=== PATIENT | female | born 1950 | race Caucasian/White ===

== ENCOUNTER → 2023-05-23 13:15 | Outpatient (REF) | payer MEDICARE, OTHER, SELFPAY | LOC: HWRAD 13:15 | PROVIDERS: ATTENDING PHYSICIAN Internal Medicine Critical Care Medicine | DX: R91.8 Other nonspecific abnormal finding of lung field (principal) | CPT/HCPCS: 71250 ==

== ENCOUNTER → 2023-07-11 10:10 | Outpatient (REF) | payer MEDICARE, OTHER, SELFPAY | LOC: HWRCS 10:10 | PROVIDERS: ATTENDING PHYSICIAN Internal Medicine Cardiovascular Disease; FAMILY PHYSICIAN Family Medicine | DX: I10 Essential (primary) hypertension (principal); I50.32 Chronic diastolic (congestive) heart failure | CPT/HCPCS: 93306 ==

== ENCOUNTER → 2024-03-19 11:27 | Outpatient (REF) | payer MEDICARE, OTHER, SELFPAY | LOC: HWWDC 11:27 | PROVIDERS: ATTENDING PHYSICIAN Obstetrics & Gynecology Gynecology; FAMILY PHYSICIAN Family Medicine | DX: Z12.31 Encounter for screening mammogram for malignant neoplasm of breast (principal); Z78.0 Asymptomatic menopausal state | CPT/HCPCS: 77063; 77067; 77080 ==

== ENCOUNTER → 2024-03-26 08:53 | Outpatient (REF) | payer MEDICARE, OTHER, SELFPAY | LOC: WDC 08:53 | PROVIDERS: ATTENDING PHYSICIAN Obstetrics & Gynecology Gynecology; FAMILY PHYSICIAN Family Medicine | DX: R92.8 Other abnormal and inconclusive findings on diagnostic imaging of breast (principal) | CPT/HCPCS: 76642 ==

== ENCOUNTER → 2024-04-02 13:11 | Outpatient (REF) | payer MEDICARE, OTHER, SELFPAY ==
[2024-04-02 14:33] LABS: Blood Urea Nitrogen 18 mg/dl (7-17)
== END ==
LOC: REG 13:11
PROVIDERS: ATTENDING PHYSICIAN Family Medicine
DX: I50.32 Chronic diastolic (congestive) heart failure (principal)
CPT/HCPCS: 36415; 82565; 84520

== ENCOUNTER → 2024-04-08 16:37 | Outpatient (REF) | payer MEDICARE, OTHER, SELFPAY | LOC: RAD 16:37 | PROVIDERS: ATTENDING PHYSICIAN Obstetrics & Gynecology Gynecology; FAMILY PHYSICIAN Family Medicine; REFERRING PHYSICIAN Surgery Vascular Surgery | DX: R92.8 Other abnormal and inconclusive findings on diagnostic imaging of breast (principal) | CPT/HCPCS: 71275; Q9967 ==

== ENCOUNTER 2024-09-13 04:15 | Day surgery (SDC) | payer MEDICARE, OTHER, SELFPAY ==
[2024-09-12 19:08] VITALS: BP 141/84
[2024-09-12 19:40] LABS: Hematocrit 40.4 % (37.0-47.0); Hemoglobin 13.6 g/dL (12.0-16.0); Mean Corp Hgb Conc. 33.7 g/dL (33.0-37.0); Mean Corpuscular Volume 91.2 fL (81.0-99.0); Nucleated Red Blood Cells % 0 %; Platelet Count 245 10^3/uL (130-400); Red Cell Dist. Width 13.6 % (11.5-14.5)
[2024-09-12 19:44] LABS: ALT (SGPT) 42 U/L (0-35); AST (SGOT) 25 U/L (14-36); Albumin 4.5 g/dl (3.5-5.0); Alkaline Phosphatase 91 U/L (38-126); Blood Urea Nitrogen 15 mg/dl (7-17); Calcium 10.5 mg/dl (8.4-10.2); Carbon Dioxide 27 mmol/L (22-30); Chloride 103 mmol/L (98-107); Glucose 114 mg/dl (70-99); Lipase 88 U/L (23-300); Potassium 3.9 mmol/L (3.5-5.1); Sodium 137 mmol/L (135-145); Total Protein 7.6 g/dl (6.3-8.2); eGFR > 60.00
[2024-09-12 19:55] LABS: Troponin I < 0.012 ng/ml
--- NOTE | 2024-09-12 23:03 | ED.GENMED ---
History of Present Illness
General
Chief Complaint: Abdominal Pain
Source: patient
Exam Limitations: none
Time Seen by Provider: 09/12/24 21:11
Nursing documentation reviewed up to this point in time: agreed with
History of Present Illness
History of Present Illness:
The patient is a 74-year-old female with history hypertension, hypothyroid, diabetes who presents to the emergency department for evaluation of abdominal pain. Patient states that symptoms started somewhat acutely this afternoon around 2 PM after
eating a slice of pizza. She describes a sharp, stabbing pain across her mid abdomen, more so on the right side. She now feels like the pain is localized to the right mid/right upper abdomen although occasionally shoots over to the left side.
She has felt extremely nauseous although has had no episodes of vomiting. She denies any known fever. No radiation of pain into her back. No dysuria or hematuria. No diarrhea or constipation.
Patient was seen by her primary care provider this afternoon who referred her to the emergency department for further evaluation.
Patient denies any chest pain or shortness of breath.
Past History
Past History
ED Past Medical History: Hypercholesterolemia, NIDDM and Hypothyroidism
Social History
Tobacco: Non-smoker
Personal:
Living: with family
Employment: Employed
Review of Systems
Review of Systems
Allergies reviewed?: Yes
All Other Systems: ROS reviewed and negative except as documented in HPI and ROS
Phy Exam
Physical Exam
Physical Exam:
Vitals: Hypertensive, otherwise vital signs stable.. Afebrile
General: Patient is well appearing, no acute distress. Nontoxic appearing
Skin: Warm and dry, no rashes or lesions
Head: Normocephalic, atraumatic
Eyes: Sclera nonicteric.
Throat: Protecting airway
Neck: Normal ROM, no cervical spine tenderness, no meningismus
Cardiac: Regular rate and rhythm, no murmurs.
Pulm: Normal respiratory effort, no wheezes, rales, rhonchi heard on exam
.
Abdomen: Abdomen soft. Moderate tenderness in right mid/right upper quadrant. No rebound tenderness or guarding. No CVA tenderness.
Extremities: No evidence of cyanosis or edema
Neuro: AAOx3. Grossly intact.
Psychiatric: Normal affect.
Course
Orders/Labs/Results
Orders:
Orders
09/12/24 19:10
EKG [Electrocardiogram (*1)] Urgent
Reason for Study: Abdominal Pain
09/12/24 19:11
EKG- Treatment ONCE
09/12/24 19:20
Complete Blood Count/With Diff Urgent
Comprehensive Metabolic Panel Urgent
Lipase Urgent
Troponin I Urgent
09/12/24 21:36
US Abdomen Complete/Upper Urgent
Comment:
Reason For Exam: Upper abdominal pain
09/12/24 23:30
Ketorolac [Toradol] 15 mg IV NOW STA
09/13/24 00:00
CT Abd/pelvis W Iv Cont Urgent
Reason For Exam: Upper abdominal pain
09/13/24 01:34
0.9% Sodium Chloride 1000 ml [Nss] 1,000 ml IV BOLUS
LevoFLOXacin 750 MG/150 ML [Levaquin] 750 mg in 150 ml IV NOW
MetroNIDAZOLE 500 MG/100 ML [Flagyl 500 mg] 100 ml IV NOW
09/13/24 01:38
0.9% Sodium Chloride 1000 ml [Nss] 1,000 ml IV BOLUS
Abnormal Lab Results
09/12/24
19:20
WBC 15.7 H 10^3/uL
(4.8-10.8)
Abs Immat Gran (auto) 0.1 H 10^3/uL
(0-0.05)
Absolute Neuts (auto) 12.8 H 10^3/uL
(1.4-6.5)
Absolute Monos (auto) 1.1 H 10^3/uL
(0.1-0.6)
Immature Gran % 0.6 H %
(0-0.5)
Neutrophils % 81.6 H %
(42.2-75.2)
Lymphocytes % 10.2 L %
(20.5-51.1)
Glucose 114 H mg/dl
(70-99)
Calcium 10.5 H mg/dl
(8.4-10.2)
ALT 42 H U/L
(0-35)
09/12/24 19:20
09/12/24 19:20
Vital Signs
Initial and Last Documented VS:
Initial Vital Signs
Temp Pulse Resp BP Pulse Ox
98.8 F 98 18 141/84 96
09/12/24 19:08 09/12/24 19:08 09/12/24 19:08 09/12/24 19:08 09/12/24 19:08
Last Documented Vital Signs
Temp Pulse Resp BP Pulse Ox
98.8 F 86 18 127/69 98
09/12/24 19:08 09/13/24 00:34 09/13/24 00:34 09/12/24 23:49 09/13/24 00:32
MDM/Problems Addressed
Differential Diagnosis Includes:
Not limited to: Biliary colic, acute cholecystitis, choledocholithiasis, cholangitis, pancreatitis, appendicitis, diverticulitis, etc.
MDM/Problems Addressed:
74-year-old female presenting with acute onset right-sided abdominal pain after eating a slice of pizza this afternoon. Symptoms associated with nausea although no vomiting. No associated fever, dysuria, diarrhea. Vitals and physical exam as
above. Differential broad�however given postprandial nature�higher suspicion for biliary etiology including biliary colic or acute cholecystitis. Other considerations include diverticulitis, appendicitis, enteritis, etc. ED plan: Labs, treat
pain. Will start with abdominal ultrasound and reassess.
Update: Labs reviewed. CBC significant for leukocytosis of 15.7 with left shift. Chemistry without clinically significant abnormalities. A troponin was sent which is undetectable. Lipase normal. Abdominal ultrasound reveals he distended
gallbladder however no evidence of cholelithiasis or other findings consistent with acute cholecystitis. While patient does report improvement in symptoms following Toradol on reexamination she does still have moderate tenderness in right mid/upper
abdomen. Given persistent tenderness as well as leukocytosis�will proceed with CT scan for further evaluation. Patient remains stable.
Update: CT scan shows findings consistent with possible early acute appendicitis, noting dilation at base of appendix and minimal surrounding fat stranding. No evidence of gallbladder abnormality. At this point�concern for early appendicitis given
leukocytosis and persistent abdominal pain. Levaquin/Flagyl started in emergency department given history of penicillin allergy. Discussed with general surgery, Dr. Stapleton. Patient admitted to general surgery service in stable condition for
continued IV antibiotics and consult in the morning.
Chronic conditions affecting care:
Hypertension
Acute Exacerbation and/or Progression of Chronic Illness:
Acutely hypertensive
*Radiology
Radiology exam reviewed: radiology read reviewed
*Pulse Oximetry
SaO2: 96
Oxygen Mode of Delivery: Room air
Patient hypoxic: no
*EKG
Interpreted by ED Provider?: Yes
EKG Intrepretation Date: 09/12/24
Interpretation: abnormal
Comparison EKG: changes noted
Heart Rate: 95
Rate: normal
Rhythm: sinus and PVC's
[place]: left axis deviation
Interval: normal QT interval and first degree heart block
QRS Pattern: left vent hypertrophy
*Tankage Grinder Interpretation
Rate: Tankage Grinder- N/A
*Critical Care Note
Total Time (30-74mins, 75-104mins- exclusive of procedures): Not Applicable
Patient Management
Discussion with other providers: Chief Deputy Clerk/Bailiff (Case discussed with general surgery)
Escalation/DeEscalation of care consider admission/obs:
Admit for IV antibiotics, general surgery and possible OR
ED Attending Note
-
Portions of this chart may have been created with voice recognition software.� Occasional wrong word or��sound alike� substitutions may have occurred due to the inherent limitations of voice recognition software.
Discharge Plan
Departure
Patient Disposition: Admit
Date of Disposition: 09/13/24
Time of Disposition: 01:34
Admit to doctor: Dr. Stapleton
Presentation/result/management discussed w/ accepting MD/DO: General Surgery
Discharge Problem:
Acute appendicitis
Prescriptions:
No Action
levothyroxine 75 MCG tablet
75 mcg PO DAILY
losartan-hydrochlorothiazide 1 EACH tablet
1 tab PO DAILY
potassium chloride [Klor-Con M20] 20 MEQ tablet,ER particles/crystals
40 meq PO DAILY
furosemide 80 MG tablet
80 mg PO DAILY
diltiazem HCl 120 MG capsule,extended release 24hr
60 mg PO BID
metformin 1,000 MG tablet
1,000 mg PO BID
fluticasone propion-salmeterol [Advair HFA] 1 PUFF HFA aerosol inhaler
2 puff inhalation R BID Qty: 1 0RF
Patient Comments:
Pt took this in 2015
cyanocobalamin (vitamin B-12) [Vitamin B-12] 1,000 mcg Tablet
1,000 mcg PO Q48H
spironolactone 25 mg Tablet
12.5 mg PO QPM
vitamin B complex Tablet
2 tab PO BID
allopurinol 300 mg Tablet
300 mg PO DAILY
albuterol sulfate 90 mcg/actuation Hfa Aerosol Inhaler
2 puff INHALATION QID
fluticasone propionate 110 mcg/actuation Hfa Aerosol Inhaler
2 puff INHALATION BID
Referrals:
Radha Bryan MD [Family Provider, Family Practice]
Interventions
Interventions:
*Risk Screen - Suicide Last Done: 09/12/24 19:08
*General Assessment Last Done: 09/12/24 19:08
*Neglect/Abuse Screening Last Done: 09/12/24 19:08
*ED COVID-19 Vaccine History Last Done: 09/12/24 19:08
KP-Flvzzi-Zopnhnupli Assessment Last Done: 09/12/24 23:41
Discharge Date and Time
Print Language: BULGARIAN
[2024-09-12 23:49] VITALS: BP 127/69
[2024-09-13] VITALS (13 sets, daily range): BP systolic 95–134; BP diastolic 57–84; BMI 58.0; BMI 47.4
[2024-09-13] MEDS: TORADOL 15 MG IV ×3 (00:28→17:49)
[2024-09-13] MEDS: FLAGYL 500 MG 100 IV (01:55)
[2024-09-13] MEDS: LEVAQUIN 150 IV (02:10)
[2024-09-13] MEDS: NSS 1000 IV ×2 (02:12→04:50)
--- NOTE | 2024-09-13 02:58 | HPS.HSE ---
Addendum entered and electronically signed by Henok Stapleton MD 09/13/24 09:22:
Patient seen and examined independently of admitting nurse practitioner. Agree with documented history and physical consistent with my current examination evaluation.
HPI: 74-year-old female was in her usual baseline state of health until yesterday afternoon when she was with her grandchildren and noticed the acute onset of periumbilical/generalized abdominal pain as time progressed the pain appeared to localize
more towards the right lower quadrant although it was still radiating out from them. She has been nauseous but without vomiting. There is anorexia. No recent change in her bowel habits. Her pain persisted this a.m. although it is improving with
administration of analgesics. No similar episodes in the past.
PMH is notable for hypertension, chronic diastolic heart failure, hypothyroidism, type 2 diabetes, restrictive lung disease, gout.
Past abdominal surgical history of having undergone hysterectomy and x 2
AFVSS
NAD AAO x 3
ABD: Soft, obese, protuberant, tenderness to palpation periumbilically but localized in the right lower quadrant with localized voluntary guarding and rebound.
CT imaging personally reviewed Dilated appendix up to 1 cm with surrounding fat stranding. Fluid-filled appendix. No organizing fluid collection. No free fluid. No additional notable acute or chronic CT imaging findings.
Assessment: 74-year-old female with acute appendicitis.
Reviewed with patient history, examination and CT imaging consistent with acute appendicitis. Discussed both operative and nonoperative management options and associated risks/benefits of approaches. Patient is in agreement to proceed with
appendectomy.
Laparoscopic appendectomy reviewed in detail with the patient. Discussed operative technique, alternative management options, benefits and potential risks such as but not limited to bleeding, infectious or wound healing complications, iatrogenic
injury to surrounding viscera and staple line leakage. Discussed the typical postoperative recovery pending operative findings.
Any of the patient's concerns or questions were fully addressed and informed consent was obtained.
Plan: OR for laparoscopic appendectomy.
Empiric antibiotic coverage with Levaquin/Flagyl initiated emergency department.
Nothing by mouth, IV fluid hydration and supportive care awaiting operative room availability.
SCDs for DVT prophylaxis
Original Note:
Family Physician
-
Family Physician: Radha Bryan
Chief Complaint
-
Abdominal pain
History of Present Illness
Patient is a 74-year-old female with a past medical history significant for hypertension, chronic diastolic heart failure, hypothyroidism, non-insulin dependent type 2 diabetes, restrictive lung disease, gout, who presents to the emergency
department for evaluation of abdominal pain. Patient states that symptoms started somewhat acutely this afternoon around 2 PM after eating a slice of pizza at noon. She describes a sharp, stabbing pain across her mid abdomen, more so on the right
side. She now feels like the pain is localized to the right mid/right upper abdomen although occasionally shoots over to the left side. She has felt extremely nauseous although has had no episodes of vomiting. She denies any known fever. No
radiation of pain into her back. No dysuria or hematuria. No diarrhea or constipation. Patient denies any chest pain or shortness of breath. Patient was seen by her primary care provider this afternoon who referred her to the emergency department
for further evaluation.
In the emergency department, labs notable for elevated WBC 15.7 with left shift, otherwise unremarkable.
EKG preliminary read sinus rhythm with 1st degree A-V block with occasional premature ventricular complexes, left axis deviation. Vital signs stable, afebrile, on room air.
Abdominal ultrasound showed distended gallbladder however no evidence of cholelithiasis or other findings consistent with acute cholecystitis.
CT abdomen and pelvis with IV contrast, preliminary read, impression: The base of the appendix is dilated at 1 cm with minimal surrounding fat stranding. This may be incidental or may represent early acute appendicitis. Correlate with clinical
findings. No free air, free fluid, or abscess. Gallbladder and pancreas are unremarkable. Mild hepatic steatosis. No hydronephrosis. Nonobstructing right lower pole renal calculi. No bowel obstruction or focal inflammation. DJD and DDD.
In the emergency department, patient was given Ketorolac 15 mg IV, 1L NSS, Levofloxacin 750 mg IV x 1 dose and Metronidazole 500 mg IV x 1 (antibiotics per penicillin allergy).
Emergency provider discussed case with general surgery, Dr. Stapleton. Patient to be admitted to general surgery service, continue IV antibiotics, antiemetics, and analgesia. Consult in the morning.
Medical History
Past Medical History
Past Medical History: Reports Asthma, CHF, HTN, Hypothyroidism and NIDDM
Past Surgical History: Reports (1984 and 1986), Gynocological (Hysterectomy 2001) and Orthopedic (Left knee surgery 1993, 2009)
Social History
Tobacco: Non-smoker
Drug: None
Personal:
Living: With Family
Employment: Retired
Family History
Family History: Not pertinent
Allergies / Home Medications
Allergies reflects when Allergies were last updated in [employer].
Home Medications with original date entered in [employer]
Allergy/Medication List:
Patient Allergies
Allergy/AdvReac Type Severity Reaction Status Date / Time
latex Allergy Rash Verified 09/12/24 19:10
Penicillins Allergy Rash Verified 09/12/24 19:10
pollen extracts Allergy Itching Verified 09/12/24 19:10
theophylline Allergy DIFFICULTY Verified 09/12/24 19:10
BREATHING
Home Medications
�Medication �Instructions �Recorded
diltiazem HCl 120 mg 60 mg PO BID 05/19/15
capsule,extended release 24 hr
furosemide 80 mg tablet 80 mg PO DAILY 05/19/15
levothyroxine 75 mcg tablet 75 mcg PO DAILY 05/19/15
metformin 1,000 mg tablet 1,000 mg PO BID 05/19/15
potassium chloride 20 mEq 20 meq PO DAILY 05/19/15
tablet,extended
release(part/cryst) (Klor-Con M)
albuterol sulfate 90 mcg/actuation 2 puff inhalation QID 02/03/23
aerosol inhaler
allopurinol 300 mg tablet 300 mg PO DAILY 02/03/23
cyanocobalamin (vitamin B-12) 1,000 mcg PO Q48H 02/03/23
1,000 mcg tablet (Vitamin B-12)
spironolactone 25 mg tablet 12.5 mg PO QPM 02/03/23
vitamin B complex 2 tab PO BID 02/03/23
fluticasone furoate 100 1 inh inhalation DAILY 09/13/24
mcg/actuation blister powder for
inhalation (Arnuity Ellipta)
losartan 100 mg tablet 100 mg PO DAILY 09/13/24
Review of Systems
-
History Source: Patient
Constitutional: Reports No Symptoms
EENT: Reports No Symptoms
Respiratory: Reports No Symptoms
Cardiac: Reports No Symptoms
Abdomen/GI: Reports Abdominal Pain (right side mid and upper abdomen), Nausea and Pain (Severe pain w/acute onset, on evaluation no pain)
: Reports No Symptoms
Musculoskeletal: Reports No Symptoms
Skin: Reports No Symptoms
Neurological: Reports No Symptoms
Endocrine: Reports No Symptoms
Hematologic/Lymphatic: Reports No Symptoms
Psych: Reports Calm
Physical Exam
Vital Signs
Vital Signs
Temp Pulse Resp BP Pulse Ox
98.8 F 86 18 127/69 98
09/12/24 19:08 09/13/24 00:34 09/13/24 00:34 09/12/24 23:49 09/13/24 00:32
Physical Exam
General: No Apparent Distress, Comfortable, Conversant, Poor Appetite and Morbidly Obese; No Pain or Fever
HEENT: NormoCephalic, Moist mucous membranes, Atraumatic and PERRLA; No Oxygen
Respiratory: Clear and Non Labored Respirations; No Wheezes, Rales, Rhonchi or Crackles
Cardiac: S1/S2, Regular Rhythm and Peripheral Edema (+2 pitting b/l lower extremity/pedal edema); No Murmur
GI: Soft and Tender (right side upper/mid abdomen)
Musculoskeletal: Edema, Left Lower Extremity (+2 pitting) and Edema, Right Lower Extremity (+2 pitting )
Skin: Warm, Dry and IV/Catheter Site
Neuro: AO x 3 and Nonfocal/grossly intact
Psych: Calm and Intact Judgment/Insight
Laboratory Results
-
09/12/24 19:20
09/12/24 19:20
Laboratory Results
Total Bilirubin 0.7 mg/dl (0.2-1.3) 09/12/24 19:20
AST 25 U/L (14-36) 09/12/24 19:20
ALT 42 U/L (0-35) H 09/12/24 19:20
Alkaline Phosphatase 91 U/L (38-126) 09/12/24 19:20
Troponin I < 0.012 ng/ml 09/12/24 19:20
Lipase 88 U/L (23-300) 09/12/24 19:20
Data Reviewed
-
CT Scan: Report Reviewed by me
Ultrasound: Report Reviewed by me
Medical Tests (Nuc Med, Echo, EKG etc): Image Personally Visualized and interpreted
Lab Data: Labs Reviewed by me
Impression/Plan
-
IMPRESSION:
Patient is a 74-year-old female with a past medical history significant for hypertension, chronic diastolic heart failure, hypothyroidism, non-insulin dependent type 2 diabetes, restrictive lung disease, gout, who presents to the emergency
department for evaluation of abdominal pain.
PLAN:
Acute Appendicitis
-CT shows dilated base of appendix with mild surrounding fat stranding
-Admit to General Surgery service, Dr. Stapleton accepting patient
-NPO, IV fluids NSS @ 50 mls
-Continue antiemetics and analgesics PRN: Dilaudid, Zofran
-Continue IV antibiotics: Levaquin and Flagyl IV antibiotics due to Pencillin allergy
CHF/Hypertension
-Continue home medications: Diltiazem,
- Home medications on hold, restart as per surgery: Losartan, Spironolactone, Furosemide, Supplemental Potassium Chloride
NIDDM type 2
- Hold Metformin
- SS insulin coverage
- Accu checks Q6H, Pt NPO
- Hgb A1c
Hypothyroidism
- Continue home medication: Levothyroxine
Asthma/RLD
-Continue home medications: Arnuity Ellipta (home dosing), Albuterol (PRN)
Gout
-Continue home medications: Allopurinol
DVT Prophylaxis: SCD's (now) and Lovenox (post op)
Code Status: Full Code
--- NOTE | 2024-09-13 04:15 | PTCARENOTE ---
Patient arrived to unit accompanied by ED PCT. Ambulated self to bathroom then to bed without difficulty. Nursing assessment completed and as documented. VSS, oriented to room/facility, instructed use of call angel and within reach, care ongoing.
[2024-09-13 06:08] LABS: Glucose - Point of Care 104 mg/dl (70-99)
[2024-09-13] MEDS: SYNTHROID 75 MCG PO (06:08)
[2024-09-13] MEDS: FLOVENT 44 MCG INHALER 2 PUFF INH ×2 (07:24→18:03)
[2024-09-13] MEDS: ZYLOPRIM 300 MG PO (08:40)
[2024-09-13] MEDS: CARDIZEM 60 MG PO ×2 (08:40→19:55)
--- NOTE | 2024-09-13 09:22 | W.SUR.PREOP ---
Pre-Operative Surgical Note
-
I have examined this patient prior to the performance of the scheduled procedure.
The patient's condition is unchanged from the time of the current History and
Physical and the patient is able to undergo the scheduled procedure.
[2024-09-13 09:36] LABS: Glycohemoglobin (HgbA1c) 5.8 % (4.0-5.6)
--- NOTE | 2024-09-13 10:59 | CM ---
Addendum entered by Lolly Iraheta 09/13/24 14:53:
Per physician patient for surgery and then he would change status from OBS.
Original Note:
Patient seen at bedside with daughter present on [address]. Patient stated that she lives with her in a 2 story home. Patient has no DME at home and has not needed VN in the past. Patient PCP is Dr. Bryan and she uses [facility] in [facility]
on [address] Patient is for surgery today and per physician plan is to change patient status after surgery. CM reviewed with patient current status as OBS/Miller and she plans to complain to physician. CM will continue to follow for discharge
planning needs.
PLan; home with VN vs home with no needs.
--- NOTE | 2024-09-13 11:41 | W.IMMPOSTOP ---
Addendum entered and electronically signed by Henok Stapleton MD 09/13/24 11:48:
#[id number]
Original Note:
Surgical Immed Post Op Note
-
Primary Surgeon: Henok Stapleton MD
Assisting Surgeon: Lorena VINCENT
Pre-op Diagnosis: Acute appendicitis
Post-op Diagnosis: Acute appendicitis
Procedure Performed: Laparoscopic appendectomy
Anesthesia Type: GETA +0.25% Marcaine
Specimen / Cultures: Appendix
Estimated Blood Loss: 6 mL
Complications: None immediate
Operative Findings: Omental adhesions to the lower midline abdominal wall and right lower quadrant which were released to visualize the cecum, terminal ileum and appendix. Appendix was acutely inflamed, distended and indurated. No purulence, no
free fluid, no perforation. No disruption of the appendix with appendectomy. Appendix divided flush with cecum utilizing Endo NIKI zavala 30 mm stapler.
[2024-09-13 12:03] LABS: Glucose - Point of Care 133 mg/dl (70-99)
[2024-09-13 17:02] LABS: Glucose - Point of Care 162 mg/dl (70-99)
[2024-09-13] MEDS: GLUCOPHAGE 1000 MG PO (17:42)
[2024-09-13] MEDS: LOVENOX 40 MG SC (17:42)
[2024-09-13] MEDS: ALDACTONE 12.5 MG PO (17:42)
[2024-09-13] MEDS: TYLENOL 650 MG PO (20:34)
[2024-09-13 21:27] LABS: Glucose - Point of Care 142 mg/dl (70-99)
[2024-09-14] MEDS: NSS IV (01:20)
[2024-09-14 03:14] VITALS: BP 124/78
[2024-09-14] MEDS: SYNTHROID 75 MCG PO (05:23)
[2024-09-14 07:15] VITALS: BP 120/66
[2024-09-14 07:43] LABS: Glucose - Point of Care 132 mg/dl (70-99)
[2024-09-14] MEDS: ZYLOPRIM 300 MG PO (07:58)
[2024-09-14] MEDS: COZAAR 100 MG PO (07:58)
[2024-09-14] MEDS: CARDIZEM 60 MG PO (07:58)
[2024-09-14] MEDS: GLUCOPHAGE 1000 MG PO (07:58)
[2024-09-14] MEDS: LASIX 80 MG PO (07:58)
[2024-09-14] MEDS: KCL 20 MEQ PO (07:59)
[2024-09-14] MEDS: FLOVENT 44 MCG INHALER 2 PUFF INH (08:05)
--- NOTE | 2024-09-14 10:59 | W.PN.GS2 ---
Today's Communication / Plan
-
Dispo planning
Assessment / Plan
-
74 yo female presenting with acute appendicitis now POD #1 lap appi
AFVSS
Tolerating diet, passing flatus
Pain well managed
Plan:
Analgesics prn
No need for further abx
D/C to home
Subjective Data
-
Date of Service: September 14, 2024
pt seen and examined at bedside with Dr Mak. Some incisional pain. Denies n/v. Passing flatus. OOB to chair and ambulating. Tolerating solid diet
Objective Data
-
Intake and Output
09/13/24 09/14/24 09/15/24
06:59 06:59 06:59
Intake Total 960 / 960
Balance 960 / 960
Intake:
Oral fluids 960 / 960
Other:
Number of approximated MODERATE 1 1
amounts of urine
Number of approximated LARGE 1
amounts of urine
Vital Signs
Temp Pulse Resp BP Pulse Ox
97.9 F 67 16 120/66 96
09/14/24 07:15 09/14/24 08:05 09/14/24 08:05 09/14/24 07:58 09/14/24 08:05
Lab Results
09/12/24 19:20
09/12/24 19:20
Calcium 10.5 mg/dl (8.4-10.2) H 09/12/24 19:20
Total Bilirubin 0.7 mg/dl (0.2-1.3) 09/12/24 19:20
AST 25 U/L (14-36) 09/12/24 19:20
ALT 42 U/L (0-35) H 09/12/24 19:20
Alkaline Phosphatase 91 U/L (38-126) 09/12/24 19:20
Total Protein 7.6 g/dl (6.3-8.2) 09/12/24 19:20
Albumin 4.5 g/dl (3.5-5.0) 09/12/24 19:20
Physical Exam
-
NAD
ABD soft, obese, mild distention, mild incisional tenderness
Incisions well approximated with intact glue
[2024-09-14 11:05] VITALS: BP 109/67
--- NOTE | 2024-09-14 11:05 | W.DS.TRANS ---
DC Summary - Lead Mechanic
-
Discharge Instructions:
Discharge Diagnosis/Procedures Acute appendicitis. Laparoscopic appendectomy
Diet As tolerated,Diabetic, Carb Controlled
Additional Diets Smaller meals initially after surgery as
abdominal bloating and distention are common for
the first few days
Activity No strenuous activity
Additional Activity Routine daily activities are all okay as
tolerated. Avoid lifting over 15 pounds for 3
to 4 weeks postop
Driving Restrictions No driving for 3 to 4 days or if using narcotics
Bathing Restrictions OK to Shower
Wound Care Glue at surgical sites typically peels off in 2
to 3 weeks
Instructions:
Stand-Alone Forms:
Changes to Home Medications: No
Discharge Medications:
DC Medications w/original date entered in [employer]
diltiazem HCl 120 mg capsule,extended release 24 hr 60 mg PO BID Blood Pressure 05/19/15
furosemide 80 mg tablet 80 mg PO DAILY Fluid Retention/Swelling 05/19/15
levothyroxine 75 mcg tablet 75 mcg PO DAILY Thyroid 05/19/15
metformin 1,000 mg tablet 1,000 mg PO BID Diabetes 05/19/15
potassium chloride 20 mEq tablet,extended release(part/cryst) (Klor-Con M) 20 meq PO DAILY Supplement 05/19/15
albuterol sulfate 90 mcg/actuation aerosol inhaler 2 puff inhalation QID Lung/Breathing Issues 02/03/23
allopurinol 300 mg tablet 300 mg PO DAILY Gout 02/03/23
cyanocobalamin (vitamin B-12) 1,000 mcg tablet (Vitamin B-12) 1,000 mcg PO Q48H Supplement 02/03/23
spironolactone 25 mg tablet 12.5 mg PO QPM Fluid Retention/Swelling 02/03/23
vitamin B complex 2 tab PO BID Supplement 02/03/23
fluticasone furoate 100 mcg/actuation blister powder for inhalation (Arnuity Ellipta) 1 inh inhalation DAILY Lung/Breathing Issues 09/13/24
losartan 100 mg tablet 100 mg PO DAILY Blood Pressure 09/13/24
acetaminophen 325 mg tablet 650 mg (2 x 325 mg) PO Q4HPRN PRN mild pain #1 tab 09/14/24
ibuprofen 200 mg tablet 400 - 600 mg (2 - 3 x 200 mg) PO Q6HPRN PRN moderate pain #1 tab 09/14/24
oxycodone 5 mg tablet 5 mg PO Q4HPRN PRN breakthrough/severe pain #10 tabs 09/14/24
Home Medication Changes
Pending Results: No
[2024-09-14 11:28] LABS: Glucose - Point of Care 121 mg/dl (70-99)
--- NOTE | 2024-09-14 12:22 | CM ---
Pt for dc today.
Pt dc home with no identified needs.
== END 2024-09-14 12:08 | disposition home or self-care (01) ==
LOC: SDS 04:15
PROVIDERS: Emergency Medicine; Nurse Practitioner Family; ATTENDING PHYSICIAN Surgery; EMERGENCY PHYSICIAN Emergency Medicine; FAMILY PHYSICIAN Family Medicine
DX: K35.80 Unspecified acute appendicitis (principal); K66.0 Peritoneal adhesions (postprocedural) (postinfection)
CPT/HCPCS: 44970; 74177; 76700; 80053; 82962; 83036; 83690; 84484; 85025; 88304; 88341; 88342; 93005; 94640; 96365; 96366; 96367; 96375; 99285; Q9967

== ENCOUNTER → 2024-10-22 13:54 | Outpatient (REF) | payer MEDICARE, OTHER, SELFPAY | LOC: WDC 13:54 | PROVIDERS: ATTENDING PHYSICIAN Surgery; FAMILY PHYSICIAN Family Medicine | DX: R92.8 Other abnormal and inconclusive findings on diagnostic imaging of breast (principal) | CPT/HCPCS: 76642 ==